=== PATIENT | female | born 1945 | race Caucasian/White ===

== ENCOUNTER → 2016-12-04 | Outpatient (CLI) | payer MEDICARE ==
--- NOTE | 2016-12-08 07:32 | RADIOLOGY REPORT PS360 ---
MRI-LOW EXT ANY JOINT W/O-LT HISTORY: Severe left knee pain especially when walking angle and up steps. Limited range of motion PAIN IN RIGHT AND LEFT KNEE ORDERING PHYSICIAN: Renzo Winn MD PATIENT AGE: 71 years COMPARISON: Radiograph of 08/11/2016 TECHNIQUE: Standard multiplanar multiecho sequences are performed without contrast. FINDINGS: There are severe tricompartmental osteoarthritic changes with loss of the knee joint space medially, laterally, and at the patellofemoral joint with severe osteophyte formation at all 3 compartments. There is absence of the anterior cruciate ligament consistent with chronic ACL tear. The posterior cruciate ligament is buckled and edematous. There is medial extrusion of the medial meniscus. There is a horizontal tear involving the posterior horn of the medial meniscus with chronic maceration of the body of the medial meniscus which has a small appearance and could be due to chronic tear. There is moderate sized knee joint effusion in the suprapatellar region. There is severe loss of the joint space medially with dystrophic changes of the medial femoral condyle and medial tibial plateau. Edematous changes involving the articular surface of the distal femur and proximal tibia most apparent at the lateral femoral condyle and lateral tibial plateau probably related to edema from an underlying osteoarthritic change. Avascular necrosis could have a similar appearance. The collateral ligaments are intact. Patellar tendon and quadriceps tendon is intact. No obvious fracture. IMPRESSION: 1. Severe osteoarthritis of the left knee as detailed above involving all 3 compartments with knee joint effusion. 2. 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 Horizontal tear involves the posterior horn of the medial meniscus. The body of the medial meniscus is very thin and macerated consistent with chronic tear. 4. Abnormal bone marrow signal intensity of the distal femur and proximal tibia probably related to edema from the underlying osteoarthritis. Avascular necrosis is also included in the differential diagnosis especially along the lateral and posterior aspect of the distal femur and proximal tibia
--- NOTE | 2016-12-09 05:02 | RADIOLOGY REPORT PS360 ---
MRI-LOW EXT ANY JOINT W/O-RT HISTORY: Right-sided knee pain PAIN IN RIGHT AND LEFT KNEE ORDERING PHYSICIAN: Renzo Winn MD PATIENT AGE: 71 years COMPARISON: None TECHNIQUE: Standard multiplanar multiecho sequences are performed without contrast. FINDINGS: There is chronic tear of the ACL with hyper buckling of the PCL. ACL is thickened somewhat. There are severe tricompartmental osteoarthritic changes greater in the medial compartment with decrease in the joint spaces, osteosclerosis, and osteophyte formation. Prominent osteophytes are present at the patellofemoral joint. The medial meniscus is extruded medially with resultant [id number] of the medial compartment. Diffuse increased T2 signal of the medial meniscus with discontinuity of the posterior horn medial meniscus consistent with meniscal tear with abnormal hypointensity noted along the posterior and central aspect of the medial meniscus suspicious for a flipped meniscus. A complete tear is also suspected involving the anterior horn medial meniscus. The cruciate ligaments, patellar tendon, quadriceps tendon are intact. There is thinning of the patellar cartilage. There is a 1 cm subarticular cyst of the posterior aspect of the tibia proximally just deep to the tibial spines. No fracture or dislocation. There is mild bone marrow edema involving the articular surfaces of the medial joint space and the central aspect of the lateral femoral condyle. IMPRESSION: 1. Chronic tear of the ACL. 2. Complex tear of the posterior horn of the medial meniscus with suspected flipped meniscus along with longitudinal tear of the anterior horn the medial meniscus. 3. Severe osteoarthritic change of the right knee with some bone marrow edema of the medial femoral condyle and tibial plateau and the medial aspect of the lateral femoral condyle
== END ==
LOC: RAD 14:14
DX: M25.561 Pain in right knee (principal); M25.562 Pain in left knee